=== PATIENT | male | born 1960 | race Caucasian/White ===

== ENCOUNTER 2016-07-22 12:53 | Outpatient (CLI) ==
--- NOTE | 2016-07-22 13:29 | DI ---
EXAM: Radiographs, right hand HISTORY: Right hand pain. COMPARISON: None available. TECHNIQUE: Three views. FINDINGS: Bone mineralization is normal. Oblique fracture through the distal shaft of the fifth me tacarpal noted with mild volar angulation and displacement of the major distal fracture fragment. N o other fractures seen. 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 There is a curvilinear radiopaque foreign object within the soft tissues along the volar aspect of the fourth distal interphalangeal joint. IMPRESSION: 1. Mildly displaced distal fifth metacarpal fracture. 2. Subcutaneous radiopaque foreign object at the volar aspect of the fourth DIP joint.
== END 2016-07-22 12:54 | disposition home or self-care (01) ==
LOC: RAD 12:53
PROVIDERS: ATTEND Family Medicine
DX: M79.641 Pain in right hand (principal)